=== PATIENT | female | born 1990 | race African-American/Black ===

== ENCOUNTER 2016-11-19 19:50 | Emergency (ER) | payer BC, OTHER ==
[~2016-11-19] VITALS: Ht 154.9 cm; Wt 66.0 kg
[~2016-11-19 19:50] MED LIST: ALBU8I INH; BACT800T5 PO; Z.0.BCPILL PO
[2016-11-19 19:52] VITALS: BP 136/76; PULSE 68; RESP 14; TEMP 98.1; O2SAT 98
[2016-11-19] MEDS ORDERED: DICL50TA3 PO (20:31)
[2016-11-19] MEDS ORDERED: CYCL1TAB29 PO (20:31)
--- NOTE | 2016-11-19 20:31 | PD ---
HPI Chief Complaint: Pain: Acute or Chronic Time Seen by Provider: 20:27 Travel History International Travel<30 days: No Contact w/Intl Traveler<30days: No Traveled to known affect area: No History of Present Illness HPI 26-year-old black female presents to emergency department complains of left upper back pain around her shoulder for the past few days. She states that she just started new exercise routine doing cross fit. She states the pain is around her left scapula. Worse with bending and movements. She denies any direct trauma. No numbness or tingling. Pain is mild to moderate PFSH Past Medical History Narrative Medical Asthma Tetanus Vaccination: < 5 Years ?: Not LMP: CURRENT Past Surgical History Surgical History: No Previous Surgery Social History Alcohol Use: No Tobacco Use: No Substance Use: No Allergies-Medications (Allergen,Severity, Reaction): Coded Allergies: No Known Allergies (Unverified , 11/19/16) Reported Meds & Prescriptions Reported Meds & Active Scripts Active No Active Prescriptions or Reported Medications Review of Systems Except as stated in HPI: all other systems reviewed are Neg HENT: No: Neck Stiffness, Neck Pain Musculoskeletal: Positive: Myalgias, Cramping, Pain, No: Arthralgias, Limited ROM, Weakness, Edema Neurologic: No: Headache, Paresthesia Physical Exam Narrative GENERAL: Well-developed, well-nourished in no apparent distress. Nontoxic appearing. HEAD: Normocephalic, atraumatic. EYES: Pupils equal round and reactive. Extraocular motions intact. No scleral icterus. No injection or drainage. ENT: Nose clear. Throat without erythema, tonsillar hypertrophy or exudate. Uvula midline. Airway patent. NECK: Trachea midline. Supple, nontender, moves head freely. No central bony tenderness or spasm. CARDIOVASCULAR: Regular rate and rhythm without murmurs, gallops, or rubs. RESPIRATORY: Clear to auscultation. Breath sounds equal bilaterally. No wheezes , rales, or rhonchi. GASTROINTESTINAL: Abdomen soft, non-tender, nondistended. No hepato-splenomegaly , or palpable masses. No guarding. EXTREMITIES: No clubbing, cyanosis, or edema. No joint tenderness. BACK: There is no central bony tenderness to palpation of dorsal lumbar spine. She has tenderness around the left periscapular region without deformity. Mild spasm. She has full range of motion. No saddle anesthesia. No lower back pain. No flank tenderness. NEUROLOGICAL: Awake, alert and oriented x 3 .Cranial nerves grossly intact. Motor and sensory grossly within normal limits. Normal speech. Data Data Last Documented VS Vital Signs Date Time Temp Pulse Resp B/P Pulse Ox O2 Delivery O2 Flow Rate FiO2 11/19/16 19:52 98.1 68 14 136/76 98 Room Air MDM Medical Decision Making Medical Screen Exam Complete: Yes Emergency Medical Condition: Yes Medical Record Reviewed: Yes Differential Diagnosis MDM: High Differential diagnoses: AAA,Fracture, sprain, strain, HNP, nerve or vascular injury, epidural abscess, pilonidal cyst, pyelonephritis, UTI, nephrolithiasis, ureterolithiasis Narrative Course Patient has myofascial left upper back pain. Diagnosis Primary Impression: Upper back pain on left side Patient Instructions: General Instructions Additional Instructions: Rest. Ice for the next 3 days followed by heat . Flexeril and Voltaren. Follow-up with a primary care doctor in one week. Massage several times a day. No exercising for 1 week. Return to the ER for emergencies. Med/Other Pt SpecificInfo: Prescription(s) given Scripts No Active Prescriptions or Reported Meds Disposition: 01 DISCHARGE HOME Condition: Stable Angel Sidhu Nov 19, 2016 20:30
== END 2016-11-19 20:53 | disposition home or self-care (01) ==
LOC: NEPB 19:50
DX: M54.9 Dorsalgia, unspecified (principal)
CPT/HCPCS: 99283